=== PATIENT | female | born 1980 | race Caucasian/White ===

== ENCOUNTER 2016-07-26 02:27 | Emergency (ER) | payer SELFPAY ==
--- NOTE | ~2016-07-26 | ER ---
PATIENT'S NAME: JESSICA GRIFFITHI Arcenio [facility] AGE: 36 Y [address] ROOM: [place] [id number] LOCATION: [facility] ADMIT DATE: 07/26/2016 ER/Outpatient Report DISCHARGE DATE: 07/26/2016 FAMILY PHYSICIAN: PHYSICIAN, NO ATTENDING PHYSICIAN: Scott Carroll Time of Arrival: 0227 hours. Time of Evaluation: 0231 hours. CHIEF COMPLAINT: Abdominal pain. HISTORY OF PRESENT ILLNESS: The patient is a 36-year-old female, who presents to the emergency department today with chief complaint of abdominal pain. She reports this started at 3:00 p.m. this afternoon. It is a sharp, crampy type abdominal pain, in the mid epigastric region. She has had multiple episodes of diarrhea before. Denies any nausea or vomiting. No fevers or chills. No urinary frequency, urgency, or painful urination. No blood in her stool. No dark tarry stools. No constipation. PAST MEDICAL HISTORY: None. PAST SURGICAL HISTORY: Cleft lip and palate x7, tubal ligation. SOCIAL HISTORY: The patient denies any tobacco, alcohol, or illicit drug use. ALLERGIES: NO KNOWN DRUG ALLERGIES. MEDICATIONS: None. PRIMARY CARE DOCTOR: None. REVIEW OF SYSTEMS: All systems are reviewed by myself and are negative with the exception of those discussed in the HPI and past medical history. PHYSICAL EXAMINATION: VITAL SIGNS: Weight 54.8 kg, blood pressure 139/84, pulse 98, respiratory PATIENT'S NAME: JESSICA GRIFFITHI Arcenio [facility] AGE: 36 Y [address] ROOM: [place] [address] LOCATION: [facility] ADMIT DATE: 07/26/2016 ER/Outpatient Report DISCHARGE DATE: 07/26/2016 FAMILY PHYSICIAN: PHYSICIAN, NO ATTENDING PHYSICIAN: Scott Carroll rate 18, temperature 97.9, oxygen saturation 99% on room air. GENERAL: The patient is a 36-year-old female, who appears stated age, in no acute distress at this time. HEENT: Normocephalic, atraumatic. Pupils are equal, round, and reactive to light. Oropharynx is clear. Mucous membranes are moist. NECK: Supple. There is no nuchal rigidity. CARDIOVASCULAR: Regular rate and rhythm. No murmurs, rubs, or gallops. LUNGS: Clear to auscultation bilaterally. No wheezes, rales, or rhonchi. ABDOMEN: Soft, mild midepigastric tenderness to palpation. There is no rebound, rigidity, or guarding. Positive bowel sounds. MUSCULOSKELETAL: The patient moves all 4 extremities. 5/5 muscle strength. SKIN: Warm and dry. There are no rashes or lesions noted. LABORATORY DATA AND X-RAYS: CBC is unremarkable. CMP is unremarkable. H. pylori is negative. IMPRESSION: 1. Acute nonsurgical midepigastric abdominal pain. 2. Initial visit. EMERGENCY DEPARTMENT COURSE: The patient was brought back to the examination room. Seen and evaluated by myself. The patient was given 4 mg of Zofran ODT as well as a GI cocktail p.o. This has resulted in complete resolution of the patient's symptoms. Laboratory analysis was obtained. I have discussed results with the patient and her at bedside. The patient's abdominal exam is repeated. She continues to have a nonsurgical abdominal exam at this time. She has no tenderness. I have discussed I would like her to follow up with her primary care doctor in 2 to 3 days for re-evaluation. I have discussed that if she continues to have pain, she may require endoscopy at some point. I have read written a prescription for omeprazole for home. I have discussed return to care instructions including worsening symptoms or any other concerns to return to the emergency department as soon as possible. The patient is agreeable, is agreeable without further questions at this time. DISPOSITION: The patient discharged home in good condition. DO HARVEY CARSON/josephine PATIENT'S NAME: ALLIE GRIFFITH [facility] AGE: 36 Y [address] ROOM: [place], [place] [address] LOCATION: ED ADMIT DATE: 07/26/2016 ER/Outpatient Report DISCHARGE DATE: 07/26/2016 FAMILY PHYSICIAN: PHYSICIAN, NO ATTENDING PHYSICIAN: Scott Carroll /[id number] d: 07/26/16 0428 t: 07/26/16 1837, OUTPATIENT REPORT
[2016-07-26 03:11] LABS: BASOPHIL % 0.5 %; EOSINOPHIL # 0.2 K/uL (0.0-0.5); EOSINOPHIL % 2.5 %; HEMATOCRIT 35.2 % (33.0-46.0); HEMOGLOBIN 11.4 g/dL (11.0-15.0); IMMATURE GRANULOCYTE % 0.3 %; LYMPHOCYTE # 2.5 K/uL (0.8-4.0); LYMPHOCYTE % 32.3 %; MCH 30.1 pg (27.0-34.0); MCHC 32.4 gm/dL (32.0-36.5); MCV 92.9 fl (83.0-98.0); MONOCYTE # 0.6 K/uL (0.0-1.0); MONOCYTE % 7.3 %; MPV 10.1 fl (9.4-12.4); NEUTROPHIL # (ANC) 4.4 K/uL (1.8-7.8); NEUTROPHIL % 57.1 %; NRBC % 0 /100WBC (0-0.00); PLATELET COUNT 281 K/uL (150-450); RBC 3.79 M/uL (3.50-5.50); WBC 7.7 K/uL (4.0-11.0)
[2016-07-26 03:28] LABS: ALBUMIN 3.7 gm/dL (3.5-5.0); ALK PHOS 52 IU/L (33-138); ALT 29 IU/L (12-78); ANION GAP 9.6 (10.0-19.0); AST 51 IU/L (10-40); BLOOD UREA NITROGEN 9 mg/dL (6-24); CALCIUM 8.4 mg/dL (8.5-10.5); CHLORIDE 110 mMol/L (96-110); CO2 26 mMol/L (22-32); CREATININE 0.8 mg/dL (0.5-1.1); ESTIMATED GFR (MDRD EQUATION) > 60; POTASSIUM 3.6 mMol/L (3.7-5.1); SODIUM 142 mMol/L (135-145); TOTAL BILIRUBIN 1.2 mg/dL (0.0-1.5); TOTAL PROTEIN 7.4 g/dL (6.0-8.4)
== END 2016-07-26 03:48 | disposition disaster alternative care site (69) ==
LOC: GMED 02:27
PROVIDERS: Emergency Medicine
DX: R10.13 Epigastric pain (principal); Z98.51 Tubal ligation status